=== PATIENT | male | born 1975 | race Caucasian/White ===

== ENCOUNTER → 2017-12-24 | Outpatient (CLI) | payer OTHER, MEDICARE, MEDICAID | END | disposition home or self-care (01) | LOC: CFH 15:40 | PROVIDERS: ATTEND Family Medicine | DX: M50.221 Other cervical disc displacement at C4-C5 level (principal); M48.02 Spinal stenosis, cervical region; M47.892 Other spondylosis, cervical region | CPT/HCPCS: 72141 ==